=== PATIENT | female | born 2005 | race Caucasian/White ===

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

== ENCOUNTER 2023-03-17 10:58 | Emergency (ER) | payer MEDICAID ==
[2023-03-17 11:50] LABS: GLUCOSE,URINE NEGATIVE (NEGATIVE); KETONES,URINE 40 mg/dL (NEGATIVE); LEUKOCYTE ESTERASE,URINE MODERATE (NEGATIVE); NITRITE,URINE NEGATIVE (NEGATIVE); OCCULT BLOOD,URINE SMALL (NEGATIVE); PROTEIN,URINE TRACE mg/dL (NEGATIVE); UROBILINOGEN,URINE 0.2 EU/dL (<2.0)
[2023-03-17 11:54] VITALS: BP 136/65; PULSE 71
[2023-03-17 11:54] LABS: APPEARANCE,URINE SLT CLOUDY; BILIRUBIN,URINE SMALL (NEGATIVE); COLOR,URINE DARK YELLOW
[2023-03-17 12:03] LABS: AMORPHOUS SEDIMENT,URINE FEW (NEGATIVE); BACTERIA,URINE FEW (NEGATIVE); EPITHELIAL CELLS,URINE MODERATE (NONE-FEW); RBC,URINE 0-3 (0-2/HPF); WBC,URINE 0-3 (0-5/HPF)
[2023-03-17 12:30] LABS: CANDIDA DNA PROBE NEGATIVE (NEGATIVE); GARDNERELLA DNA PROBE POSITIVE (NEGATIVE); TRICHOMONAS DNA PROBE NEGATIVE (NEGATIVE)
[2023-03-17 13:14] LABS: C. TRACHOMATIS BY PCR NOT DETECTED; N. GONORRHOEAE BY PCR NOT DETECTED
== END 2023-03-17 11:54 | disposition home or self-care (01) ==
LOC: MW.ED 10:58
DX: N89.8 Other specified noninflammatory disorders of vagina (principal); Z91.018 Allergy to other foods
CPT/HCPCS: 81001; 81025; 87086; 87480; 87491; 87510; 87591; 87660; 99283

== ENCOUNTER 2023-06-01 10:41 | Emergency (ER) | payer MEDICAID ==
[2023-06-01] MEDS ORDERED: Sodium Chloride 0.9% 1,000 ML IV ONE (11:20)
[2023-06-01] MEDS ORDERED: Ketorolac 30 MG/ML SDV IVPUSH ONE (11:21)
[2023-06-01] MEDS ORDERED: LORazepam 2 MG/ML SDV IVPUSH ONE (11:22)
[2023-06-01 13:28] VITALS: BP 118/60; PULSE 84
== END 2023-06-01 13:26 | disposition home or self-care (01) ==
LOC: MW.ED 10:41
DX: G44.209 Tension-type headache, unspecified, not intractable (principal); J01.10 Acute frontal sinusitis, unspecified; Z91.018 Allergy to other foods
CPT/HCPCS: 96361; 96374; 96375; 99283; J1885; J2060; J7030

== ENCOUNTER 2023-06-22 17:27 | Emergency (ER) | payer MEDICAID ==
[2023-06-22 17:39] VITALS: BP 123/54; PULSE 87
[2023-06-22 18:36] LABS: APPEARANCE,URINE CLEAR; BILIRUBIN,URINE NEGATIVE (NEGATIVE); COLOR,URINE YELLOW; GLUCOSE,URINE NEGATIVE (NEGATIVE); KETONES,URINE NEGATIVE (NEGATIVE); LEUKOCYTE ESTERASE,URINE SMALL (NEGATIVE); NITRITE,URINE NEGATIVE (NEGATIVE); OCCULT BLOOD,URINE NEGATIVE (NEGATIVE); PH,URINE 6.5 (5.0-8.0); PROTEIN,URINE NEGATIVE (NEGATIVE)
[2023-06-22 18:51] LABS: RBC,URINE 0-1 (0-2/HPF); WBC,URINE 0-2 (0-5/HPF)
[2023-06-22 18:52] LABS: AMORPHOUS SEDIMENT,URINE FEW (NEGATIVE); BACTERIA,URINE FEW (NEGATIVE); EPITHELIAL CELLS,URINE FEW (NONE-FEW)
[2023-06-22 19:23] LABS: CANDIDA DNA PROBE NEGATIVE (NEGATIVE); GARDNERELLA DNA PROBE POSITIVE (NEGATIVE); TRICHOMONAS DNA PROBE NEGATIVE (NEGATIVE)
[2023-06-22 20:07] LABS: C. TRACHOMATIS BY PCR NOT DETECTED; N. GONORRHOEAE BY PCR NOT DETECTED
== END 2023-06-22 20:41 | disposition left against medical advice (07) ==
LOC: MW.ED 17:27
DX: N76.0 Acute vaginitis (principal); Z20.2 Contact with and (suspected) exposure to infections with a predominantly sexual mode of transmission; Z91.018 Allergy to other foods
CPT/HCPCS: 36415; 81001; 81025; 86592; 87086; 87389; 87480; 87491; 87510; 87591; 87660; 99283

== ENCOUNTER 2023-06-27 09:15 | Emergency (ER) | payer MEDICAID ==
[2023-06-27] MEDS ORDERED: Dexamethasone 10 MG/ML SDV PO ONE (10:09)
[2023-06-27 13:39] VITALS: BP 114/72; PULSE 96
== END 2023-06-27 10:56 | disposition home or self-care (01) ==
LOC: MW.ED 09:15
DX: J02.9 Acute pharyngitis, unspecified (principal); Z91.018 Allergy to other foods
CPT/HCPCS: 87651; 99283; J8540

== ENCOUNTER 2024-01-19 09:42 | Emergency (ER) | payer MEDICAID ==
[2024-01-19] MEDS: Dexamethasone 10 MG/ML SDV PO ONE (10:19)
[2024-01-19 11:01] VITALS: BP 132/71; PULSE 89
== END 2024-01-19 11:01 | disposition home or self-care (01) ==
LOC: MW.ED 09:42
DX: J02.9 Acute pharyngitis, unspecified (principal); Z91.018 Allergy to other foods
CPT/HCPCS: 87651; 99283; J8540

== ENCOUNTER 2024-12-13 11:05 | Emergency (ER) | payer MEDICAID ==
[2024-12-13 11:42] LABS: APPEARANCE,URINE CLOUDY; COLOR,URINE YELLOW; GLUCOSE,URINE NEGATIVE (NEGATIVE); KETONES,URINE TRACE mg/dL (NEGATIVE); LEUKOCYTE ESTERASE,URINE SMALL (NEGATIVE); NITRITE,URINE NEGATIVE (NEGATIVE); OCCULT BLOOD,URINE LARGE (NEGATIVE); PROTEIN,URINE 100 mg/dL (NEGATIVE); UROBILINOGEN,URINE 0.2 EU/dL (<2.0)
[2024-12-13 11:54] LABS: BILIRUBIN,URINE SMALL (NEGATIVE); EPITHELIAL CELLS,URINE MANY (NONE-FEW); RBC,URINE 20-30 (0-2/HPF)
[2024-12-13 11:55] LABS: BACTERIA,URINE 1+ (NEGATIVE)
[2024-12-13 12:24] LABS: BASOPHILS ABSOLUTE AUTO 0.06 K/uL (0.00-0.20); BASOPHILS PERCENT AUTO 0.6 % (0.0-1.0); EOSINOPHILS ABSOLUTE AUTO 0.31 K/uL (0.00-0.45); EOSINOPHILS PERCENT AUTO 2.9 % (0.0-6.0); HEMATOCRIT 35.2 % (37.0-47.0); HEMOGLOBIN 11.7 g/dL (12.0-16.0); IMMATURE GRAN ABSOLUTE AUTO 0.02 K/uL (0.00-0.05); IMMATURE GRAN PERCENT AUTO 0.2 % (0.0-0.4); LYMPHOCYTES ABSOLUTE AUTO 2.41 K/uL (1.00-4.80); LYMPHOCYTES PERCENT AUTO 22.3 % (24.0-44.0); MEAN CORPUSCULAR HEMOGLOBIN 27.9 pg (28.0-32.0); MEAN CORPUSCULAR HGB CONC 33.2 g/dL (32.0-36.0); MEAN PLATELET VOLUME 10.3 fL (9.4-12.3); MONOCYTES ABSOLUTE AUTO 0.67 K/uL (0.00-0.80); MONOCYTES PERCENT AUTO 6.2 % (0.0-8.0); NEUTROPHILS ABSOLUTE AUTO 7.32 K/uL (1.80-7.70); NEUTROPHILS PERCENT AUTO 67.8 % (41.0-71.0); PLATELET COUNT,PLT 379 K/uL (150-400); RED BLOOD CELL COUNT 4.19 M/uL (4.10-5.30); WHITE BLOOD CELL COUNT,WBC 10.79 K/uL (3.9-11.3)
[2024-12-13 12:26] LABS: CANDIDA DNA PROBE NEGATIVE (NEGATIVE); GARDNERELLA DNA PROBE POSITIVE (NEGATIVE); TRICHOMONAS DNA PROBE NEGATIVE (NEGATIVE)
[2024-12-13 12:50] LABS: A/G RATIO 0.9 (0.9-1.6); ALBUMIN 3.6 g/dL (3.4-5.0); BILIRUBIN TOTAL 0.4 mg/dL (0.2-1.0); CALCIUM 8.7 mg/dL (8.5-10.1); CARBON DIOXIDE,CO2 25.9 mmol/L (21.0-32.0); CREATININE 0.9 mg/dL (0.6-1.0); EST CRCL DRUG DOSING (CG) 85.38 mL/min; POTASSIUM,K 3.8 mmol/L (3.5-5.1); PROTEIN TOTAL,TP 7.5 g/dL (6.4-8.2)
[2024-12-13 13:12] LABS: C. TRACHOMATIS BY PCR NOT DETECTED; N. GONORRHOEAE BY PCR NOT DETECTED
[2024-12-13] MEDS ORDERED: Misoprostol 100 MCG Tab PO ONE (13:25)
[2024-12-13] MEDS: Misoprostol 200 MCG Tab PO ONE (13:43)
[2024-12-13 13:57] VITALS: BP 116/47; PULSE 70
== END 2024-12-13 13:56 | disposition home or self-care (01) ==
LOC: MW.ED 11:05
DX: N76.0 Acute vaginitis (principal); N39.0 Urinary tract infection, site not specified; Z91.018 Allergy to other foods; Z79.899 Other long term (current) drug therapy; Z75.3 Unavailability and inaccessibility of health-care facilities
CPT/HCPCS: 36415; 76817; 80053; 81001; 81025; 84702; 85025; 87086; 87480; 87491; 87510; 87591; 87660; 99284; A9270; 99283

== ENCOUNTER 2025-04-16 14:57 | Emergency (ER) | payer MEDICAID ==
[2025-04-16 15:20] LABS: GLUCOSE,URINE NEGATIVE (NEGATIVE); OCCULT BLOOD,URINE NEGATIVE (NEGATIVE)
[2025-04-16 15:28] LABS: APPEARANCE,URINE SLT CLOUDY
[2025-04-16 15:29] LABS: EPITHELIAL CELLS,URINE MANY (NONE-FEW)
[2025-04-16 15:57] LABS: BASOPHILS ABSOLUTE AUTO 0.05 K/uL (0.00-0.20); BASOPHILS PERCENT AUTO 0.3 % (0.0-1.0); EOSINOPHILS ABSOLUTE AUTO 0.18 K/uL (0.00-0.45); EOSINOPHILS PERCENT AUTO 1.2 % (0.0-6.0); IMMATURE GRAN ABSOLUTE AUTO 0.21 K/uL (0.00-0.05); IMMATURE GRAN PERCENT AUTO 1.4 % (0.0-0.4); LYMPHOCYTES ABSOLUTE AUTO 2.49 K/uL (1.00-4.80); LYMPHOCYTES PERCENT AUTO 16.8 % (24.0-44.0); MEAN PLATELET VOLUME 10.0 fL (9.4-12.3); MONOCYTES ABSOLUTE AUTO 0.58 K/uL (0.00-0.80); MONOCYTES PERCENT AUTO 3.9 % (0.0-8.0); NEUTROPHILS ABSOLUTE AUTO 11.29 K/uL (1.80-7.70); NEUTROPHILS PERCENT AUTO 76.4 % (41.0-71.0); NRBC ABSOLUTE 0.00 K/uL (0.00-0.02); NRBC PERCENT 0.0 /100WBC (0.0-0.2); PLATELET COUNT,PLT 364 K/uL (150-400); RED BLOOD CELL COUNT 4.40 M/uL (4.10-5.30); WHITE BLOOD CELL COUNT,WBC 14.80 K/uL (3.9-11.3)
[2025-04-16] MEDS: Lidocaine 1% PF 2 ML SDV INJECT ONE (16:36)
[2025-04-16 16:39] LABS: CANDIDA DNA PROBE POSITIVE (NEGATIVE); GARDNERELLA DNA PROBE POSITIVE (NEGATIVE); TRICHOMONAS DNA PROBE NEGATIVE (NEGATIVE)
[2025-04-16 16:42] LABS: A/G RATIO 0.9 (0.9-1.6); ALANINE AMINOTRANSFERASE,ALT 24.0 IU/L (14-63); ASPARTATE AMNIOTRANSFERASE,AST 17.0 IU/L (15-37); BILIRUBIN TOTAL 0.4 mg/dL (0.2-1.0); BLOOD UREA NITROGEN,BUN 9.0 mg/dL (7.0-18.0); CARBON DIOXIDE,CO2 23.7 mmol/L (21.0-32.0); CHLORIDE,CL 101.0 mmol/L (98-107); CREATININE 0.8 mg/dL (0.6-1.0); EST CRCL DRUG DOSING (CG) 95.25 mL/min; GLUCOSE RANDOM 130.0 mg/dL (74-106); POTASSIUM,K 3.3 mmol/L (3.5-5.1); PROTEIN TOTAL,TP 7.3 g/dL (6.4-8.2); SODIUM,NA 135.0 mmol/L (136-145)
[2025-04-16 16:45] LABS: ESTIMATED GFR 107.0 mL/min (>60); HCG QUANTITATIVE 49849.0 mIU/mL
[2025-04-16 17:36] VITALS: BP 122/60; PULSE 97
[2025-04-16] MEDS: Potassium Chloride 20 MEQ Tab.ER PO ONE (18:54)
== END 2025-04-16 17:36 | disposition home or self-care (01) ==
LOC: MW.ED 14:57
DX: O23.591 Infection of other part of genital tract in pregnancy, first trimester (principal); O23.41 Unspecified infection of urinary tract in pregnancy, first trimester; N39.0 Urinary tract infection, site not specified; B37.31 Acute candidiasis of vulva and vagina; Z3A.01 Less than 8 weeks gestation of pregnancy; Z75.3 Unavailability and inaccessibility of health-care facilities; Z91.048 Other nonmedicinal substance allergy status; Z79.899 Other long term (current) drug therapy
CPT/HCPCS: 36415; 76817; 80053; 81001; 81025; 84702; 85025; 87480; 87510; 87660; 96372; 99284; A9270; J0696; J2003